=== PATIENT | female | born 1960 | race African-American/Black ===

== ENCOUNTER 2017-06-21 14:05 | Emergency (ER) | payer OTHER, SELFPAY ==
[2017-06-21 15:05] LABS: #Lymphocytes 1.3 thou/uL (1.20-3.40); #Monocytes 0.6 thou/uL (0.11-0.59); #Neutrophils 2.9 thou/uL (1.40-6.50); %Basophils 0.4 % (0.0-1.0); %Eosinophils 0.8 % (0.0-10.0); %Lymphocytes 26.1 % (21.0-51.0); %Monocytes 11.8 % (0.0-10.0); %Neutrophils 60.9 % (42.0-75.0); Hemoglobin 13.1 g/dL (12.0-16.0); Mean Corpuscular HGB CONC 33.2 g/dL (32.0-36.0); Mean Corpuscular Hemoglobin 29.9 pg (27.0-31.0); Mean Corpuscular Volume 89.9 fl (81.0-99.0); Mean Platelet Volume 6.2 fL (7.4-10.4); Platelet Count 353 thou/uL (130-400); RBC Distribution Width 13.1 % (11.5-14.5); White Blood Cell (WBC) Count 4.8 thou/uL (4.8-10.8)
[2017-06-21 15:26] LABS: ALT (SGPT) 32 U/L (8-55); AST (SGOT) 36 U/L (5-34); Albumin 3.6 g/dL (3.5-5.0); Alkaline Phosphatase 77 U/L (40-150); Anion Gap 12 mmol/L (10-20); BUN (Urea Nitrogen) 14 mg/dL (9.8-20.1); Bilirubin, Total 0.2 mg/dL (0.2-1.2); Calc. Creatinine Clearance 0 mL/min (70-130); Calcium 8.7 mg/dL (7.8-10.44); Carbon Dioxide 30 mmol/L (22-29); Chloride 101 mmol/L (98-107); Estimated GFR-MDRD 79; Globulin 2.9 g/dL (2.4-3.5); Glucose 99 mg/dL (70-105); Protein, Total 6.5 g/dL (6.0-8.3); Sodium 140 mmol/L (136-145)
--- NOTE | 2017-06-21 16:12 | RAD ---
PA AND LATERAL CHEST: History: Cough. Comparison: None. FINDINGS: Heart size is within normal limits. The peripherally calcified mass appears to be related to the desc ending thoracic aorta. It measures approximately 10 cm in diameter. The lungs are clear of infiltrate s. IMPRESSION: Large peripherally calcified mass which appears to represent a very large descending thoracic aortic aneurysm measuring as much as 10 cm on the lateral view. These findings were telephoned to the ER [facility] live at time of dictation. POS: [facility]
--- NOTE | 2017-06-21 16:53 | CT ---
CT ANGIOGRAM OF THE CHEST WITH IV CONTRAST AND 3D POSTPROCESSING CT ANGIOGRAM OF THE ABDOMEN WITH IV CONTRAST AND 3D POSTPROCESSING: Date: 06/21/17 HISTORY: Chest mass. Cough. FINDINGS: There are vascular calcifications with a 9.7 cm aneurysm of the descending thoracic aorta. There is m ural thrombus within the aneurysm with presence of contrast indicating of leaking aneurysm. There are patchy areas of consolidative change in the lungs, predominantly in the right lower lobe. No pleural or pericardial effusions are seen. No free air or free fluid is seen in the abdomen. Solid organs are unremarkable. No calcified gallsto rasheed are seen. There are degenerative changes in the spine. There is good flow in the celiac axis, SMA , and both renal arteries. A 13.0 mm lymph node is seen in the right paratracheal region. There is also a 2.0 cm lymph node seen in the right hilum. IMPRESSION: 1. 9.7 cm descending thoracic aortic aneurysm with findings suspicious for leak. 2. Patchy lung infiltrates suspicious for pneumonia. Findings discussed over the telephone with ER physician, Dr. Cancino, at 1621 hours. CODE CR. POS: [facility]
[2017-06-21] MEDS ORDERED: ISOVUE-370 76%-LOCM 1 ML ONE (16:56)
[2017-06-21 17:02] LABS: CKMB 1.8 ng/mL (0-6.6); Troponin I Less than 0.010 ng/mL (< 0.028)
== END 2017-06-21 17:56 | disposition short-term general hospital (02) ==
LOC: ERS 14:05
DX: I71.2 Thoracic aortic aneurysm, without rupture (principal); I10 Essential (primary) hypertension; J45.909 Unspecified asthma, uncomplicated; E78.5 Hyperlipidemia, unspecified; F41.9 Anxiety disorder, unspecified; F32.9 Major depressive disorder, single episode, unspecified; F17.210 Nicotine dependence, cigarettes, uncomplicated
CPT/HCPCS: 36415; 71046; 71275; 80053; 82553; 84484; 85025; 93005; 94760